=== PATIENT | male | born 1945 ===

== ENCOUNTER 2024-12-09 07:00 | Inpatient (IN) | payer OTHER ==
[~2024-12-09] VITALS: Ht 162.6 cm; Wt 66.2 kg
[2024-12-09] MEDS ORDERED: TADALAFIL5 MG PO (08:23)
[2024-12-09] MEDS ORDERED: MIRTAZAPINE45 M1 PO (08:23)
[2024-12-09] MEDS ORDERED: TAMS0.4C PO (08:24)
[2024-12-09] MEDS ORDERED: LUMIGAN2.5 M1 OP (08:24)
[2024-12-09] MEDS ORDERED: VYZULTA5 ML OP (08:24)
[2024-12-09 08:32] VITALS: BP 130/84
[2024-12-09 08:33] LABS: HEMATOCRIT 40.4 % (39.0-48.0); HEMOGLOBIN 13.4 g/dL (13-16.00); MEAN CELL VOLUME 97.6 fL (80.0-100.00); MEAN CORPUSCULAR HEMOGLOBIN 32.4 pg (27.00-32.0); MEAN CORPUSCULAR HGB CONC 33.2 g/dl (32.0-36.0); PLATELET COUNT 222 K/uL (150-450); RED BLOOD COUNT 4.14 M/uL (4.00-6.00); RED CELL DISTRIBUTION WIDTH 13.4 % (11.5-14.5)
[2024-12-09 08:53] LABS: INR 1.03; PARTIAL THROMBOPLASTIN TIME 24.8 SECONDS (22.0-34.0)
[2024-12-09 08:55] LABS: PH,URINE 5.5 (5.0-8.0); URINE APPEARANCE Clear; URINE BILIRRUBIN Negative (NEGATIVE); URINE BLOOD Negative; URINE COLOR Yellow; URINE GLUCOSE Negative (NEGATIVE); URINE KETONE Negative (NEGATIVE); URINE LEUKOCYTE Negative; URINE NITRATE Negative; URINE PROTEIN Negative (NEGATIVE); URINE UROBILINOGEN 0.2 E.U./dl
[2024-12-09 08:59] LABS: URINE BACTERIA 6.1 uL (0.0-1933); URINE EPITHELIAL CELLS 1.5 uL (0.0-38.8); URINE RBC 2.3 uL (0.0-20.8)
[2024-12-09 09:03] LABS: URINE CAST 0.29 uL (0.0-1.40); URINE WBC 1.4 uL (0.0-23.2)
[2024-12-09 09:04] LABS: PROTHROMBIN TIME 11.2 SECONDS (9.0-11.5)
[2024-12-09 10:10] LABS: ALBUMIN 3.9 gm/dL (3.4-5.0); BILIRUBIN TOTAL 0.51 mg/dL (0.3-1.2); CALCIUM 9.4 mg/dL (8.5-10.1); CREATININE SERUM 0.87 mg/dL (0.70-1.30); GFR 84.65; GLOBULINA 3.6 G/DL (2.4-3.5); POTASSIUM 4.61 mEq/L (3.5-5.1); TOTAL PROTEIN 7.5 gm/dL (6.4-8.2)
[2024-12-09 11:14] LABS: RH POSITIVE
[2024-12-21] MEDS ORDERED: TRANEXAMIC ACID 100MG/1ML (1000MG) AMPUL IV ONE (10:07)
[2024-12-21] MEDS ORDERED: CEFAZOLIN SODIUM 1,000 MG VIAL ONE (10:07)
[2024-12-21] MEDS ORDERED: METHYLPREDNISOLONE ACETATE 80 MG/ML VIAL ONE (10:53)
[2024-12-21] MEDS ORDERED: VANCOMYCIN HCL 1,000 MG VIAL ONE (10:54)
[2024-12-21] MEDS ORDERED: SUGAMMADEX SODIUM 200 MG/2 ML VIAL IV ONE (13:13)
[2024-12-21] MEDS ORDERED: ENALAPRILAT DIHYDRATE 1.25 MG/ML VIAL IV ONE (13:18)
[2024-12-21] MEDS ORDERED: hydrALAZINE HCL 20 MG VIAL ONE (13:28)
[2024-12-21] MEDS ORDERED: TRIAMCINOLONE ACETONIDE 40 MG/ML VIAL ONE (13:37)
[2024-12-21] MEDS ORDERED: NITROGLYCERIN IN 5 % DEXTROSE 50 MG/250 ML BOTTLE IV ONE (13:40)
[2024-12-21] MEDS ORDERED: GENTAMICIN SULFATE 40 MG/ML VIAL IV SCH (14:12)
[2024-12-21] MEDS ORDERED: SODIUM CHLORIDE 0.45 % 1,000 ML IV SCH (14:15)
[2024-12-21] MEDS ORDERED: MORPHINE SULFATE 4 MG/ML CARTRIDGE IV PRN (14:15)
[2024-12-21] MEDS ORDERED: MORPHINE SULFATE 2 MG/ML CARTRIDGE IV ONE (14:15)
[2024-12-21] MEDS ORDERED: ONDANSETRON HCL 2 MG/ML VIAL IV PRN (14:15)
[2024-12-21] MEDS ORDERED: MORPHINE SULFATE 4 MG/ML VIAL IV ONE ×2 (14:40→15:10)
[2024-12-21] MEDS ORDERED: GENTAMICIN SULFATE 40 MG/ML VIAL ONE (15:45)
[2024-12-21 16:28] LABS: HEMATOCRIT 38.9 % (39.0-48.0); HEMOGLOBIN 12.9 g/dL (13-16.00)
[2024-12-21] MEDS ORDERED: CEFAZOLIN SODIUM 1,000 MG VIAL IV SCH (18:00)
[2024-12-22 00:51] VITALS: BP 125/72; O2SAT 94
[2024-12-22 06:21] LABS: HEMATOCRIT 37.2 % (39.0-48.0); HEMOGLOBIN 12.5 g/dL (13-16.00); MEAN CELL VOLUME 96.6 fL (80.0-100.00); MEAN CORPUSCULAR HEMOGLOBIN 32.6 pg (27.00-32.0); MEAN CORPUSCULAR HGB CONC 33.7 g/dl (32.0-36.0); PLATELET COUNT 215 K/uL (150-450); RED BLOOD COUNT 3.85 M/uL (4.00-6.00); RED CELL DISTRIBUTION WIDTH 13.3 % (11.5-14.5)
[2024-12-22] MEDS ORDERED: TRAM1TAB98 PO (07:54)
[2024-12-22] MEDS ORDERED: BACTRIM DS TAB1 EACH PO (07:54)
[2024-12-22] MEDS ORDERED: INTEGRA PLUS C1 EACH PO (07:54)
[2024-12-22 08:00] VITALS: BP 128/82; O2SAT 95
[2024-12-22] MEDS ORDERED: TAMSULOSIN HCL 0.4 MG CAP PO SCH (09:00)
[2024-12-22] MEDS ORDERED: IRON FUM,PS/FOLIC/BCOMP,C NO.9 1 CAP CAPSULE PO SCH (09:00)
[2024-12-22] MEDS ORDERED: BACITRACIN 28.35 GM OINT.TUBE TOP SCH (09:00)
== END 2024-12-22 11:41 | disposition home or self-care (01) | DRG 483 ==
LOC: O/R 12-21 05:55 → SURH 12-21 07:00
PROVIDERS: ADMIT Orthopaedic Surgery Sports Medicine; ATTEND Orthopaedic Surgery Sports Medicine
PROC: 0LS40ZZ Reposition Left Upper Arm Tendon, Open Approach (ICD-10-PCS; 2024-12-21)
PROC: 0PUD0JZ Supplement Left Humeral Head with Synthetic Substitute, Open Approach (ICD-10-PCS; 2024-12-21)
PROC: 0RRK00Z Replacement of Left Shoulder Joint with Reverse Ball and Socket Synthetic Substitute, Open Approach (ICD-10-PCS; principal; 2024-12-21 07:00)
DX: M19.012 Primary osteoarthritis, left shoulder (principal); M65.812 Other synovitis and tenosynovitis, left shoulder